=== PATIENT | male | born 1975 | race Caucasian/White ===

== ENCOUNTER → 2021-05-24 08:15 | Outpatient (CLI) | payer BC, SELFPAY ==
--- NOTE | ~2021-05-24 | XR_ITS ---
EXAMINATION: XR chest 2V EXAM DATE: 05/24/2021 08:26 INDICATION: R05 - Cough . TECHNIQUE: Frontal and lateral projections of the chest obtained and reviewed. There is no prior jeannette dy for comparison. FINDINGS: Right upper lobe granuloma. The lungs are otherwise clear. There are no pleural effusions . The cardiomediastinal silhouette is within normal limits. There is no pneumothorax suspected. Th e bones and soft tissues are unremarkable. IMPRESSION: No acute cardiopulmonary findings. Reviewed, dictated and finalized at location D.
== END ==
PROVIDERS: PCP Family Medicine; Visit Provider Nurse Practitioner Family
DX: R05.9 Cough, unspecified (principal)
CPT/HCPCS: 71046

== ENCOUNTER 2021-10-25 00:18 | Day surgery (SDC) | payer BC, SELFPAY ==
[2021-10-16 09:13] VITALS: BMI 37.0
[2021-10-25 08:49] VITALS: BP 132/83; PULSE 67; RESP 18; TEMP 36.7; O2SAT 99
[2021-10-25] MEDS: LACTATED RINGERS 1,000 ML 150 ML IV CONT (08:58)
--- NOTE | 2021-10-25 09:11 | WPDGICN ---
Assessment and Plan Assessment and plan (1) History of colon polyps: Code(s): Z86.010 - Personal history of colonic polyps Status: Acute Assessment and Plan: Patient has a history of colon polyps identified 2019. Plan is for surveillance colonoscopy at this time to assess more thoroughly further recommendations will be given after endoscopy. GI Consult Note Consult date/time: 10/25/21 09:11 HPI: True Duncan is a 46 year old male Presents for screening colonoscopy. Patient reports colonoscopy by Dr. Bravo in 2019 the confirmed colon polyps. Patient states that his current weight appetite and bowel movements are normal. He denies abdominal pain. He has had no bleeding. Family history is significant that his paternal grandmother had colon cancer. Patient presents today for neoplasia screening. Review of Systems Review of Systems: All systems reviewed & are unremarkable except as noted in HPI and below PMFSH Past Medical History Medical History (Updated 10/25/21 @ 09:12 by Bhanu Núñez MD) Blood in stool BMI 37.0-37.9, adult Body mass index [BMI] 39.0-39.9, adult (01/28/17) Chronic left hip pain Contracture of palmar fascia (Dupuytren's) Cubital tunnel syndrome on left Cubital tunnel syndrome on right Dietary counseling and surveillance (05/13/17) Elevated LFTs Hyperhidrosis Left carpal tunnel syndrome Left lower quadrant pain Liver enzyme elevation Nevus Numbness and tingling in both hands Obesity (BMI 30-39.9) Other chronic pain Right anterior knee pain Right carpal tunnel syndrome Screening for diabetes mellitus Screening for prostate cancer Screening for thyroid disorder Screening, lipid Sebaceous hyperplasia of face Skin tag Testicle pain Testicular swelling Umbilical hernia without obstruction and without gangrene Surgical History Surgical History History of carpal tunnel surgery Family History Family History Father Acute myocardial infarction Mother Family history of malignant neoplasm of bone Family history of primary malignant neoplasm of liver Family history of malignant neoplasm of breast Sibling No problems noted. 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 Gender identity (if verbalized by the patient): Male Spiritual care concerns: No Meds Home Medications and Allergies Home Medications Medication Instructions Recorded Confirmed Type cetirizine 10 mg disintegrating 10 mg PO DAILY 05/23/21 10/16/21 History tablet melatonin 10 mg capsule 10 mg PO QHS 06/13/21 10/16/21 History Allergies Allergy/AdvReac Type Severity Reaction Status Date / Time No Known Allergies Allergy Verified 10/25/21 08:49 Vital Signs Vital Signs - 24 hr 10/25/21 08:49 Temperature 98.1 F Pulse Rate 67 Respiratory Rate 18 Blood Pressure 132/83 Pulse Oximetry 99 Exam Narrative: Physical exam reveals patient to be alert. Vital signs stable. HEENT exam is unremarkable. Patient is anicteric. Lungs are clear to auscultation and percussion. Heart is without murmur or extra sounds. Abdominal exam bowel sounds are present soft nontender with no hepatosplenomegaly. Digital external rectal exam is normal.
--- NOTE | 2021-10-25 10:13 | WPDANESEPPF ---
Anes - Initial Pre Proc Eval Procedure: Operation Date: 10/25/21 10:00 Proposed Procedures p Screening Colonoscopy - Bhanu Núñez MD Date/Time: 10/25/21 10:13 Surgeon: Bhanu Núñez MD Pre Op Diagnosis: hx of colon polyps, neoplasm screening Patient Data Age: 46 Gender: M Height: 1.88 m Weight: 125.9 kg Last Vital Signs Temp 36.7 C 10/25/21 08:49 Pulse 67 10/25/21 08:49 Resp 18 10/25/21 08:49 BP 132/83 10/25/21 08:49 Pulse Ox 99 10/25/21 08:49 Allergies Allergy/AdvReac Type Severity Reaction Status Date / Time No Known Allergies Allergy Verified 10/25/21 08:49 Home Medications Medication Instructions Recorded Confirmed Type cetirizine 10 mg disintegrating 10 mg PO DAILY 05/23/21 10/16/21 History tablet melatonin 10 mg capsule 10 mg PO QHS 06/13/21 10/16/21 History Patient hx anesthesia problems: none Family hx anesthesia problems: none Results Review: All pre-operative results and documents have been reviewed as part of the pre-operative evaluation. [facility] Past Medical History Medical History Blood in stool BMI 37.0-37.9, adult Body mass index [BMI] 39.0-39.9, adult (01/28/17) Chronic left hip pain Contracture of palmar fascia (Dupuytren's) Cubital tunnel syndrome on left Cubital tunnel syndrome on right Dietary counseling and surveillance (05/13/17) Elevated LFTs Hyperhidrosis Left carpal tunnel syndrome Left lower quadrant pain Liver enzyme elevation Nevus Numbness and tingling in both hands Obesity (BMI 30-39.9) Other chronic pain Right anterior knee pain Right carpal tunnel syndrome Screening for diabetes mellitus Screening for prostate cancer Screening for thyroid disorder Screening, lipid Sebaceous hyperplasia of face Skin tag Testicle pain Testicular swelling Umbilical hernia without obstruction and without gangrene Surgical History Surgical History History of carpal tunnel surgery Family History Family History Father Acute myocardial infarction Mother Family history of malignant neoplasm of bone Family history of primary malignant neoplasm of liver Family history of malignant neoplasm of breast Sibling No problems noted. 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 Informed Consent: The patient's anesthetic plan and its attendant risks and benefits were discussed with the patient/family/POA. Questions were solicited and answers provided to the satisfaction of the patient/family/POA.
[2021-10-25 10:37] VITALS: BP 110/73; PULSE 65; RESP 21; O2SAT 97
[2021-10-25 10:47] VITALS: BP 120/78; PULSE 57; RESP 18; O2SAT 100
[2021-10-25 10:57] VITALS: BP 128/87; PULSE 59; RESP 20; O2SAT 100
== END 2021-10-25 11:03 | disposition home or self-care (01) ==
PROVIDERS: PCP Family Medicine; Visit Provider Internal Medicine Gastroenterology
PROC: 0DJD8ZZ Inspection of Lower Intestinal Tract, Via Natural or Artificial Opening Endoscopic (ICD-10-PCS; CPT 45378; principal; 2021-10-25 10:00)
DX: Z12.11 Encounter for screening for malignant neoplasm of colon (principal); D12.3 Benign neoplasm of transverse colon; K57.30 Diverticulosis of large intestine without perforation or abscess without bleeding; K64.8 Other hemorrhoids; E66.9 Obesity, unspecified; Z68.35 Body mass index [BMI] 35.0-35.9, adult
CPT/HCPCS: 45385; 88305; J2704; J7120

== ENCOUNTER → 2022-01-28 01:17 | Outpatient (CLI) | payer BC, SELFPAY ==
[2022-01-28 17:33] LABS: SARS-CoV-2 RNA PCR Positive
== END ==
PROVIDERS: PCP Nurse Practitioner Family; Visit Provider Nurse Practitioner Family
DX: U07.1 COVID-19 (principal)
CPT/HCPCS: C9803; U0003; U0005

== ENCOUNTER 2023-12-29 10:25 | Outpatient (CLI) | payer BC, SELFPAY ==
--- NOTE | ~2023-12-29 | XR_ITS ---
Supine and upright views of the abdomen Clinical history: Abdominal pain Findings: Bowel gas pattern is nonspecific. No evidence for obstruction or free air. No abnormal mass lesion or calcification is seen. Osseous structures are intact. Impression: No significant abnormality is seen. Reviewed, dictated and finalized at [facility]. Impression: No significant abnormality is seen.
== END 2023-12-29 10:26 ==
LOC: MICIMG 10:28
PROVIDERS: PCP Family Medicine; Visit Provider Physician Assistant Medical
DX: R10.9 Unspecified abdominal pain (principal); G89.29 Other chronic pain
CPT/HCPCS: 74018

== ENCOUNTER 2024-12-02 02:31 | Day surgery (SDC) | payer BC, SELFPAY ==
[2024-11-24 08:31] VITALS: BMI 40.4
--- OUTSIDE RECORDS SUMMARY | 2024-12-02 02:34 | XMS_ITS | Clinical Summary ---
Author Organization [facility] Address [address] [place] [address] Care Team Providers Care Manager Steel Name Role Phone Antonio Rossi MD Primary Care Provider [phone] Source Comments [facility],non-owned Affiliates and Associated Physician Practices is amultiple site organization consisting of ambulatory clinics and hospital sitesin [place], [place], [place] and [place]. This disclosure is being madepursuant to the Care Everywhere program and may not contain all information available regarding this patient. Last updated 18.[facility] Allergies No known active allergies Medications * Be aware that medications may not be up to date on this document. Alwaysverify current medications with the patient. Melatonin 10 MG Acti ve Active Problems Problem Noted Date Diagnosed Date NAFLD (nonalcoholic fatty liver disease) 018 Overview (03/18/2022): 01/27/18 Fibroscan CAP 332, LSM 7.3 kPa 03/11/19 Fibroscan CAP 380, LSM 7.7 kPa 03/06/20 Fibroscan CAP 355, LSM 7.1 kPa mcm 03/05/21 Fibroscan CAP 263, LSM 12.5 kPa 03/18/22 Fibroscan CAP 199, LSM 7.9 kPa Obesity 02/18/2017 Resolved Problems Problem Noted Date Diagnosed Date Resolved Date Fatty (change of) liver, not elsewhere classified 07/15/2017 01/27/2018 Overview (11/09/2017): Peak weight 380 lbs Normal liver enzymes now Fibroscan: Family History Medical History Relation Name Comments None Known Brother Status: Alive CAD (Coronary Artery Disease) Father Status: Cancer - Lung Maternal Grandfather Status : Cancer - Breast Mother Status: Dece ased Cancer - Skin, Melanoma Paternal Grandmother Status: Relation Name Status Comments Brother Father Maternal Grandfather Mother Paternal Grandmother Social History Tobacco Use Types Packs/Day Years Used Date Smoking Tobacco: Never Smokeless Tobacco: Former Alcohol Use Standard Drinks/Week Comments Yes 2 (1 standard drink = 0.6 oz pur e alcohol) Sex and Gender Information Value Date Recorded Sex Assigned at Not on file Legal Sex Male 5:14 PM TELE[employer]ETING [employer] Gender Identity Not on file Sexual Orientation Not on file Last Filed Vital Signs Vital Sign Reading Time Taken Comments Blood Pressure 132/92 03/05/2021 8:43 AM CDT Pulse 67 03/05/2021 8:43 AM CDT Temperature 36.8 C (98.2 F) 03/05/2021 8:43 AM CDT Respiratory Rate 20 03/05/2021 8:43 AM CDT Oxygen Saturation 96% 03/05/2021 8:43 AM CDT Inhaled Oxygen Concentration - - Weight 134.9 kg (297 lb 6.4 oz) 03/05/2021 8:43 AM CDT Height 188 cm (6' 2 ) 03/05/2021 8:43 AM CDT Body Mass Index 38.18 03/05/2021 8:43 AM CDT Plan of Treatment Health Maintenance Due Date Last Done Comments COLOGUARD (AGES 45-75) - COL ON CA SCREENING 1975 COLON MONITORING 1975 COLONOSCOPY - COLON CA SCREENING 1975 CT COLONOGRAPHY - COLON CA SCREENING 1975 Colorectal Cancer Screening 1975 FIT - COLON CA SCREENING 1975 FLEX SIG - COLON CA SCREENING 1975 LIPID TESTING 1975 HIV SCREENING 1990 DTAP/TDAP/TD VACCINES (1 - Tdap) 1994 HEPATITIS B VACCINE (1 of 3 - 19+ 3-dose series) 1994 COVID-19 VACCINE (2023-2 5 season) 2024 DEPRESSION SCREENING 08/10/2024 INFLUENZA VACCINE (Season Ended) 2025 ZOSTER VACCINE (1 of 2) 2025 HEPATITIS C SCREENING Completed 02/18/2017 HIB VACCINE Aged Out No longer eligi ble based on patient's age to complete this topic HPV VACCINE Aged Out No longer eligi ble based on patient's age to complete this topic MENINGOCOCCAL (Group B) VACC INE SHARED DECISION-MAKING Aged Out No longer eligibl e based on patient's age to complete this topic MENINGOCOCCAL GROUPS A/C/Y/W VACCINE Aged Out No longer eligible b ased on patient's age to complete this topic Goals Goal Patient Goal Type Associated Problems Recent Progress Patient-Stated? Author Medication Management General On track( 021 8:43 AM CDT) Marcelo Ahn, RN Note: Expected end date: 07/21/19 Interventions: Take all medications as prescribed Let your doctor know right away about any changes in your medications Make sure to request a refill of your medication at least one week prior to your last dose Procedures Procedure Name Priority Date/Time Associated Diagnosis Comments HEPATITIS C AB W/RFLX TO HCV RNA QN PCR Routine 02/18/2017 9:54 AM CDT from Last 3 Months or Most Recently Relevant to Health Maintenance Results * HEPATITIS C AB W/RFLX TO HCV RNA QN PCR (02/18/2017 9:54 AM CDT) Hepatitis C Antibody NON-REACTI VE NON-REACT [facility] Signal/Cutoff 0.03 <1.00 [facility] Comment: Test Performed at: [facility] [address] [place] [address] EL BALDERAS DO,MPH 02/18/2017 9:54 AM CDT 02/18/2017 9:55 AM CDT Abbey Griffin MD LAB - CHEMISTR Y ORDERABLES Final Result [facility] [id number] from Last 3 Months or Most Recently Relevant to Health Maintenance Insurance [facility] Address: [place] [address] Care Teams Manager Steel Relationship Specialty Start Date End Date Antonio Rossi MD [address] [place] [address] PCP - General 01/20/17
--- OUTSIDE RECORDS SUMMARY | 2024-12-02 02:34 | XMS_ITS | Clinical Summary ---
Author Organization [facility] Address [address] [place] [id number] Care Team Providers Care Educational Psychologist Name Role Phone Antonio Rossi MD Primary Care Provider [phone] Allergies No known active allergies Medications melatonin 10 MG tablet Active predniSONE (DELTASONE) 10 mg tabletIndicatio ns:Rash Take two pills twice daily for 3 days then one pill twice daily for 3 days then one pill daily for 2 days 20 tablet 3 Active Additional Information Patient not taking.Reported on 05/06/2024 traZODone (DESYREL) 50 MG tablet Take 1 tablet (50 mg total) by mouth nightly at bedtime. at bedtime 4 Active Active Problems Problem Noted Date Diagnosed Date NAFLD (nonalcoholic fatty liver disease) 018 Overview (05/06/2024): 01/27/18 Fibroscan CAP 332, LSM 7.3 kPa 03/11/19 Fibroscan CAP 380, LSM 7.7 kPa 03/06/20 Fibroscan CAP 355, LSM 7.1 kPa mcm 03/05/21 Fibroscan CAP 263, LSM 12.5 kPa 03/18/22 Fibroscan CAP 199, LSM 7.9 kPa Obesity 02/18/2017 Immunizations Immunization Administration Dates Next Due PFIZER COVID-19 (ORIGINAL FO RMULATION, PURPLE CAP) mRNA, LNP-S, PF, 30 MCG/0.3 ML DOSE 03/19/2021,02/26/2021 Tdap (Generic) 04/17/2021 Social History Tobacco Use Types Packs/Day Years Used Date Smoking Tobacco: Unknown Tobacco Cessation:Counseling Given: No Alcohol Use Standard Drinks/Week Comments Yes 0 (1 standard drink = 0.6 oz pur e alcohol) socially PHQ-2 Answer Date Recorded Patient Health Questionnaire-2 Score 0 05/06/2024 Sex and Gender Information Value Date Recorded Sex Assigned at Not on file Legal Sex Male 8:31 PM CDT Gender Identity Not on file Sexual Orientation Not on file Last Filed Vital Signs Vital Sign Reading Time Taken Comments Blood Pressure 117/78 06/27/2024 10:23 AM CABLE FERRYBOAT 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 Pulse 65 06/27/2024 10:23 AM CABLE FERRYBOAT OPERATOR Temperature 36.2 C (97.2 F) 06/27/2024 10:23 AM CABLE FERRYBOAT OPERATOR Respiratory Rate 16 06/27/2024 10:2 3 AM CABLE FERRYBOAT OPERATOR Oxygen Saturation 94% 06/27/2024 10: 23 AM CABLE FERRYBOAT OPERATOR Inhaled Oxygen Concentration - - Weight 143.3 kg (315 lb 14.7 oz) 06/27/2024 8:40 AM CABLE FERRYBOAT OPERATOR Height 188 cm (6' 2 ) 06/27/2024 8:40 AM CABLE FERRYBOAT OPERATOR Body Mass Index 40.56 06/27/2024 8:40 AM CABLE FERRYBOAT OPERATOR Plan of Treatment Health Maintenance Due Date Last Done Comments Colorectal Cancer Screening Colonoscopy (10 Years) 1975 Annual Physical 1978 Hepatitis C 1993 Hepatitis B Vaccines (1 of 3 - 19+ 3-dose series) 1994 COVID-19 Vaccine (2023-2 5 season) 2024 03/19/2021, 02/26/2021 PHQ-2 (Physician [place]) 08/10/2024 05/06/2024 DTaP, Tdap and Td Vaccines ( 2 - Td or Tdap) 04/17/2031 04/17/2021 Meningococcal B Vaccine Aged Out No l onger eligible based on patient's age to complete this topic Meningococcal Vaccine Aged Out No chrissy sri eligible based on patient's age to complete this topic Pneumococcal Vaccine: Pediatrics (0 to 5 Years) and At-Risk Patients (6 to 49 Years) Aged Out No longer eligible b ased on patient's age to complete this topic RSV Immunizations Under 20 Months Aged Out No longer eligible b ased on patient's age to complete this topic Insurance Care Teams Educational Psychologist Relationship Specialty Start Date End Date Antonio Rossi MD [address] [place] [address] PCP - General FAMILY PRACTICE 06/27/24
[2024-12-02 08:11] VITALS: BP 137/87; PULSE 66; RESP 16; TEMP 36.2; O2SAT 98; BMI 40.0
--- NOTE | 2024-12-02 08:27 | P.PNAN_ITS ---
Anes - Initial Pre Proc Eval Procedure: Operation Date: 12/02/24 09:30 Proposed Procedures p Screening Colonoscopy - Rizwan Hansen MD Date/Time: 12/02/24 08:27 Surgeon: Rizwan Hansen MD Pre Op Diagnosis: Hx of polyps Patient Data Age: 49 Gender: M Height: 1.88 m Weight: 141.5 kg Last Vital Signs Temp 36.2 C L 12/02/24 08:11 Pulse 66 12/02/24 08:11 Resp 16 12/02/24 08:11 BP 137/87 12/02/24 08:11 Pulse Ox 98 12/02/24 08:11 O2 Del Method Room Air 12/02/24 08:11 Allergies Allergy/AdvReac Type Severity Reaction Status Date / Time No Known Allergies Allergy Verified 12/02/24 08:16 Home Medications ?Medication ?Instructions ?Recorded ?Confirmed ?Type cetirizine 10 mg disintegrating 10 mg PO DAILY 05/23/21 11/24/24 History tablet (Zyrtec) trazodone 50 mg tablet 50 mg PO .qhs #30 tabs 01/19/24 11/24/24 Rx cyclobenzaprine 10 mg tablet mg PO ONCE PRN muscle spasm 07/19/24 07/19/24 History colchicine 0.6 mg tablet 0.6 mg PO DIRECTED #3 tabs 07/22/24 11/24/24 Rx Patient hx anesthesia problems: none Family hx anesthesia problems: none Results Review: All pre-operative results and documents have been reviewed as part of the pre- operative evaluation. [facility] Past Medical History Medical History Contracture of palmar fascia (Dupuytren's) Blood in stool Body mass index [BMI] 39.0-39.9, adult (01/28/17) Chronic left hip pain Cubital tunnel syndrome on left Cubital tunnel syndrome on right Dietary counseling and surveillance (05/13/17) Elevated LFTs Hyperhidrosis Left carpal tunnel syndrome Left lower quadrant pain Liver enzyme elevation Nevus Numbness and tingling in both hands Obesity (BMI 30-39.9) Other chronic pain Right anterior knee pain Right carpal tunnel syndrome Screening for diabetes mellitus Screening for prostate cancer Screening for thyroid disorder Screening, lipid Sebaceous hyperplasia of face Skin tag Testicle pain Testicular swelling Umbilical hernia without obstruction and without gangrene Surgical History Surgical History History of carpal tunnel surgery Family History Family History Father Acute myocardial infarction Mother Family history of malignant neoplasm of bone Family history of primary malignant neoplasm of liver Family history of malignant neoplasm of breast Sibling No problems noted. 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 Informed Consent: The patient's anesthetic plan and its attendant risks and benefits were discussed with the patient/family/POA. Questions were solicited and answers provided to the satisfaction of the patient/family/POA.
[2024-12-02] MEDS: LACTATED RINGERS 1,000 ML 150 ML IV CONT (08:38)
--- NOTE | 2024-12-02 09:22 | P.HP_ITS ---
H&P: HPI History of Present Illness Date/Time: 12/02/24 09:22 Chief Complaint: History of colon polyps Narrative: The patient has a history of colonic polyps, the last colonoscopy was in 2021, finding and 1.3 cm tubular adenoma in the transverse colon. Review of Systems Review of Systems: All systems reviewed & are unremarkable except as noted in HPI and below PMFSH Past Medical History Medical History Contracture of palmar fascia (Dupuytren's) Blood in stool Body mass index [BMI] 39.0-39.9, adult (01/28/17) Chronic left hip pain Cubital tunnel syndrome on left Cubital tunnel syndrome on right Dietary counseling and surveillance (05/13/17) Elevated LFTs Hyperhidrosis Left carpal tunnel syndrome Left lower quadrant pain Liver enzyme elevation Nevus Numbness and tingling in both hands Obesity (BMI 30-39.9) Other chronic pain Right anterior knee pain Right carpal tunnel syndrome Screening for diabetes mellitus Screening for prostate cancer Screening for thyroid disorder Screening, lipid Sebaceous hyperplasia of face Skin tag Testicle pain Testicular swelling Umbilical hernia without obstruction and without gangrene Surgical History Surgical History History of carpal tunnel surgery Family History Family History Father Acute myocardial infarction Mother Family history of malignant neoplasm of bone Family history of primary malignant neoplasm of liver Family history of malignant neoplasm of breast Sibling No problems noted. 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 Gender identity (if verbalized by the patient): Male Spiritual care concerns: No Meds Home Medications and Allergies Home Medications ?Medication ?Instructions ?Recorded ?Confirmed ?Type cetirizine 10 mg disintegrating 10 mg PO DAILY 05/23/21 07/19/24 History tablet (Zyrtec) trazodone 50 mg tablet 50 mg PO .qhs #30 tabs 01/19/24 07/19/24 Rx cyclobenzaprine 10 mg tablet 10 mg PO ONCE PRN muscle spasm 07/19/24 07/19/24 History colchicine 0.6 mg tablet 0.6 mg PO DIRECTED #3 tabs 07/22/24 Rx naproxen 220 mg-diphenhydramine 25 1 tablet PO HS 12/02/24 12/02/24 History mg tablet (Aleve PM) Allergies Allergy/AdvReac Type Severity Reaction Status Date / Time No Known Allergies Allergy Verified 12/02/24 08:16 Vital Signs Vital Signs - 24 hr 12/02/24 08:11 Temperature 97.2 F L Pulse Rate 66 Respiratory Rate 16 Blood Pressure 137/87 Pulse Oximetry 98 Oxygen Delivery Room Air Exam Const: General: cooperative and healthy appearing Resp: Effort & Inspection: normal respiratory effort and able to speak in complete sentences Auscultation: clear to auscultation bilaterally Cardio: Rate: regular rate Rhythm: regular rhythm GI: Inspection: normal to inspection GI Palp: No No hepatosplenomegaly present Auscultation: normal bowel sounds Rectal Exam: deferred Skin: General skin exam: normal color Psych: Appearance: grossly normal Mental Status: mental status grossly normal Assessment and Plan Assessment and plan (1) History of colon polyps: Code(s): Z86.010 - Personal history of colon polyps Status: Acute Assessment and Plan: The patient is deemed a good candidate for the procedure. Consent signed. Will proceed.
[2024-12-02 09:51] VITALS: BP 116/74; PULSE 62; RESP 20; O2SAT 97
[2024-12-02 10:01] VITALS: BP 118/78; PULSE 60; RESP 21; O2SAT 98
[2024-12-02 10:11] VITALS: BP 143/92; PULSE 59; RESP 23; O2SAT 98
== END 2024-12-02 10:18 | disposition home or self-care (01) ==
PROVIDERS: PCP Family Medicine; Referring Provider Physician Assistant Medical; Visit Provider Internal Medicine Gastroenterology
PROC: 0DJD8ZZ Inspection of Lower Intestinal Tract, Via Natural or Artificial Opening Endoscopic (ICD-10-PCS; CPT 45378; principal; 2024-12-02 09:30)
DX: Z12.11 Encounter for screening for malignant neoplasm of colon (principal); K57.30 Diverticulosis of large intestine without perforation or abscess without bleeding; G89.29 Other chronic pain; M25.552 Pain in left hip; G56.03 Carpal tunnel syndrome, bilateral upper limbs; R61 Generalized hyperhidrosis; E66.01 Morbid (severe) obesity due to excess calories; Z68.41 Body mass index [BMI] 40.0-44.9, adult; Z79.1 Long term (current) use of non-steroidal anti-inflammatories (NSAID); Z98.890 Other specified postprocedural states; Z86.0100 Personal history of colon polyps, unspecified; Z80.8 Family history of malignant neoplasm of other organs or systems; Z80.0 Family history of malignant neoplasm of digestive organs; Z80.3 Family history of malignant neoplasm of breast; Z82.49 Family history of ischemic heart disease and other diseases of the circulatory system
CPT/HCPCS: 45378; J2003; J2704; J7120

== ENCOUNTER 2025-07-07 07:40 | Outpatient (CLI) | payer BC, SELFPAY ==
--- NOTE | ~2025-07-07 | US_ITS ---
EXAMINATION: US scrotum doppler, 07/07/2025 7:41 CHANNEL ACCOUNT MANAGER HISTORY: N50.89 - Other specified disorders of the male genital or... Comparison: None Technique: Galvez-scale and color Doppler images were obtained of the testes with spectral analysis to document arterial and venous flow. Findings: Right Testicle:Right testicle 4.5 x 2.3 x 2.2 cm, normal parenchyma, normal flow. Right Epidiymis:Subcentimeter right epididymal cyst, no increased flow. Left Testicle: Left testicle 3.7 x 2.3 x 3.6 cm, normal parenchyma, normal flow. Left Epidiymis: Unremarkable. Normal flow. Hydrocele: Small simple right hydrocele. Small simple left hydrocele. . Varicocele: Small right varicocele. Scrotum: Unremarkable. No skin thickening. Impression: 1. No acute process. 2. Small right varicocele Reviewed, dictated and finalized at location P. NEL ACCOUNT MANAGER Impression: 1. No acute process. 2. Small right varicocele
== END 2025-07-07 07:41 | disposition home or self-care (01) ==
LOC: MICIMG 07:40
PROVIDERS: PCP Family Medicine; Visit Provider Physician Assistant Medical
DX: N50.89 Other specified disorders of the male genital organs (principal); I86.1 Scrotal varices
CPT/HCPCS: 76870; 93976